=== PATIENT | male | born 1980 | race Hispanic/Latino ===

== ENCOUNTER 2024-05-05 16:36 | Observation (INO) | payer OTHER ==
[~2024-05-05] VITALS: Ht 188 cm; Wt 103.7 kg
[2024-05-05 17:17] LABS: BASOPHILS # (AUTO) 0.09 K/uL (0.00-0.20); EOSINOPHILS # (AUTO) 0.29 K/uL (0.00-0.70); EOSINOPHILS % (AUTO) 3.2 % (0.0-8.0); HEMATOCRIT 43.8 % (42-54); IMMATURE GRANULOCYTE ABSOLUTE 0.05 K/uL (0-1); LYMPHOCYTES # (AUTO) 2.5 K/uL (1.0-4.8); LYMPHOCYTES % (AUTO) 27.2 % (21.0-51.0); MEAN CORPUSCULAR HEMOGLOBIN 30.2 pg (27.0-33.0); MEAN CORPUSCULAR HGB CONC 35.4 g/dL (32.0-36.0); MEAN CORPUSCULAR VOLUME 85.2 fL (79-99); MONOCYTES # (AUTO) 0.6 K/uL (0.1-1.0); MONOCYTES % (AUTO) 6.9 % (3.0-13.0); NEUTROPHILS # (AUTO) 5.6 K/uL (1.8-7.7); NEUTROPHILS % (AUTO) 61.2 % (40.0-77.0); PLATELET COUNT (AUTO) 209 K/uL (130-400); RED BLOOD CELL COUNT(AUTO) 5.14 MIL/uL (4.50-6.20); WHITE BLOOD COUNT (AUTO) 9.2 K/uL (4.8-10.8)
[2024-05-05 17:24] LABS: CARBON DIOXIDE 28 mmol/L (21-32); CHLORIDE 100 mmol/L (101-111); CREATININE 0.8 mg/dL (0.5-1.3); GLOMERULAR FILTR. RATE CALC 111 mL/min (>90); GLUCOSE,RANDOM 298 mg/dL (70-105); SODIUM SERUM 135 mmol/L (136-145); UREA NITROGEN, BLOOD 13 mg/dL (7-18)
[2024-05-05] MEDS: NITROGLYCERIN 1GM OINT 1 INCH/1GM TD ONE (17:27)
[2024-05-05 17:28] LABS: ALANINE AMINOTRANSFERASE 41 U/L (12-78); ALBUMIN 3.5 g/dL (3.5-5.0); ALCOHOL, BLOOD < 3 mg/dL (0-10); ASPARTATE AMINOTRANSFERASE 18 U/L (10-37); BILIRUBIN,DIRECT 0.1 mg/dL (0.0-0.3); BILIRUBIN,TOTAL 0.7 mg/dL (0.2-1.0)
[2024-05-05] MEDS: ASPIRIN 325MG TAB PO ONE (17:28)
[2024-05-05] MEDS ORDERED: NITROGLYCERIN 30 GM TUBE TD ONE (17:30)
[2024-05-05 17:34] LABS: BASOPHILS # (AUTO) 0.08 K/uL (0.00-0.20); BASOPHILS % (AUTO) 0.9 % (0.0-5.0); EOSINOPHILS # (AUTO) 0.27 K/uL (0.00-0.70); EOSINOPHILS % (AUTO) 2.9 % (0.0-8.0); IMMATURE GRANULOCYTE ABSOLUTE 0.04 K/uL (0-1); LYMPHOCYTES # (AUTO) 2.1 K/uL (1.0-4.8); LYMPHOCYTES % (AUTO) 22.5 % (21.0-51.0); MEAN CORPUSCULAR HEMOGLOBIN 30.8 pg (27.0-33.0); MEAN CORPUSCULAR HGB CONC 35.7 g/dL (32.0-36.0); MEAN CORPUSCULAR VOLUME 86.2 fL (79-99); MONOCYTES # (AUTO) 0.7 K/uL (0.1-1.0); MONOCYTES % (AUTO) 7.4 % (3.0-13.0); NEUTROPHILS # (AUTO) 6.1 K/uL (1.8-7.7); NEUTROPHILS % (AUTO) 65.9 % (40.0-77.0); PLATELET COUNT (AUTO) 177 K/uL (130-400); RED BLOOD CELL COUNT(AUTO) 4.87 MIL/uL (4.50-6.20); RED CELL DISTRIBUTION WIDTH 12.1 % (11.0-15.5); WHITE BLOOD COUNT (AUTO) 9.3 K/uL (4.8-10.8)
[2024-05-05 17:37] LABS: B-TYPE NATRIURETIC PEPTIDE < 5 pg/mL (0-100)
[2024-05-05] MEDS: HEPARIN 5,000 UNIT VIAL IV PRN (17:44)
[2024-05-05] MEDS: HEPARIN 25,000 UNITS/250ML D5W 250 ML IV SCH (17:52)
[2024-05-05] MEDS ORDERED: GLUCAGON 1MG KIT 1 MG ML IM PRN (20:00)
[2024-05-05] MEDS ORDERED: LACTULOSE 20 GM/30 ML UDCUP PO PRN (20:00)
[2024-05-05] MEDS ORDERED: DEXTROSE 50%-WATER 50 ML DISP.SYRIN IV PRN (20:00)
[2024-05-05] MEDS ORDERED: GUAIFENESIN-DM 200/20 MG 10 ML PO PRN (20:00)
[2024-05-05] MEDS ORDERED: KCL 20 MEQ ERTAB PO PRN (20:00)
[2024-05-05] MEDS ORDERED: NITROGLYCERIN 0.4 MG SL TAB SL PRN (20:00)
[2024-05-05] MEDS ORDERED: ZOLPIDEM TARTRATE 5 MG TAB PO PRN (20:00)
[2024-05-05] MEDS ORDERED: HYDRALAZINE 20MG/ML VIAL IV PRN (20:00)
[2024-05-05] MEDS ORDERED: DiphenhydrAMINE HCL 50 MG/ML VIAL IV PRN (20:00)
[2024-05-05] MEDS ORDERED: POTASSIUM CHLORIDE 10% ELIXIR 20 MEQ/15 ML UDCUP PO PRN (20:00)
[2024-05-05] MEDS ORDERED: POTASSIUM CHLORIDE 10MEQ/100ML 100 ML IV PRN (20:00)
[2024-05-05] MEDS ORDERED: MAG/ALUM/SIMETH 30 ML UDCUP PO PRN (20:00)
[2024-05-05] MEDS ORDERED: ACETAMINOPHEN 325 MG TAB PO PRN ×2 (20:00)
[2024-05-05] MEDS ORDERED: ONDANSETRON 4MG INJ IV PRN (20:00)
[2024-05-05] MEDS ORDERED: FAMOTIDINE 20MG VIAL IV PRN (20:00)
[2024-05-05] MEDS ORDERED: OXYCODONE/ACETAMIN 5/325MG TAB PO PRN (20:00)
[2024-05-05] MEDS: FAMOTIDINE 20MG VIAL IV SCH (21:09)
[2024-05-05] MEDS: INSULIN HUMULIN R 100 UNIT/ML 3ML SQ SCH (21:17)
[2024-05-05 21:50] VITALS: BP 112/78; PULSE 91; RESP 18; O2SAT 94
[2024-05-05] MEDS: KETOROLAC 15MG/ML VIAL (15MG/ML) IV PRN (21:59)
[2024-05-05] MEDS ORDERED: OMEP40CA21 PO (22:23)
[2024-05-05] MEDS ORDERED: BENZ200C53 PO (22:23)
[2024-05-05] MEDS ORDERED: LISI5TAB21 PO (22:23)
[2024-05-05] MEDS ORDERED: METF-444 PO (22:23)
[2024-05-05] MEDS ORDERED: FENO54TA6 PO (22:23)
[2024-05-05] MEDS ORDERED: ATOR20TA65 PO (22:23)
[2024-05-05] MEDS ORDERED: CETI10TA57 PO (22:23)
[2024-05-05] MEDS ORDERED: ASPI-1197 PO (22:23)
[2024-05-05] MEDS ORDERED: INSU100I24 SQ (22:23)
[2024-05-06] VITALS (7 sets, daily range): BP systolic 101–122; BP diastolic 65–87; PULSE 60–90; RESP 17–20; O2SAT 96
[2024-05-06 00:46] LABS: INR 1.06 (0.85-1.15); PROTHROMBIN TIME 11.4 SEC (9.6-11.6)
[2024-05-06 00:48] LABS: PARTIAL THROMBOPLASTIN TIME 48.8 SEC (26.3-35.5)
[2024-05-06 05:32] LABS: AMPHET/METH SCREEN,URINE NEGATIVE (NEGATIVE); BARBITURATE SCREEN, URINE NEGATIVE (NEGATIVE); BENZODIAZEPINES SCREEN,URINE NEGATIVE (NEGATIVE); CANNABINOID SCREEN,URINE NEGATIVE (NEGATIVE); COCAINE SCREEN,URINE NEGATIVE (NEGATIVE); OPIATE SCREEN,URINE NEGATIVE (NEGATIVE); PHENCYCLIDINE SCREEN,URINE NEGATIVE (NEGATIVE)
[2024-05-06 05:34] LABS: APPEARANCE,URINE CLEAR (CLEAR); BILIRUBIN,URINE NEGATIVE (NEGATIVE); COLOR,URINE YELLOW (YELLOW); GLUCOSE, URINE (UA) >=1000 mg/dL (NEGATIVE); KETONES,URINE NEGATIVE (NEGATIVE); LEUKOCYTE ESTERASE ,URINE NEGATIVE Leu/uL (NEGATIVE); MUCUS,URINE RARE LPF (None Seen); NITRATE,URINE NEGATIVE (NEGATIVE); OCCULT BLOOD,URINE NEGATIVE (NEGATIVE); PH,URINE 5.5 (5.0-8.0); PROTEIN,URINE NEGATIVE (NEGATIVE); SQUAMOUS EPITHELIAL CELL,UR RARE /HPF (0-2); UROBILINOGEN,URINE 0.2 mg/dL (0.2-1.0)
[2024-05-06 06:34] LABS: BASOPHILS # (AUTO) 0.07 K/uL (0.00-0.20); BASOPHILS % (AUTO) 0.7 % (0.0-5.0); EOSINOPHILS % (AUTO) 3.1 % (0.0-8.0); HEMATOCRIT 42.3 % (42-54); IMMATURE GRANULOCYTE ABSOLUTE 0.05 K/uL (0-1); LYMPHOCYTES # (AUTO) 2.5 K/uL (1.0-4.8); LYMPHOCYTES % (AUTO) 25.7 % (21.0-51.0); MEAN CORPUSCULAR HEMOGLOBIN 30.7 pg (27.0-33.0); MEAN CORPUSCULAR HGB CONC 34.5 g/dL (32.0-36.0); MEAN CORPUSCULAR VOLUME 89.1 fL (79-99); MONOCYTES # (AUTO) 0.7 K/uL (0.1-1.0); MONOCYTES % (AUTO) 7.5 % (3.0-13.0); NEUTROPHILS % (AUTO) 62.5 % (40.0-77.0); PLATELET COUNT (AUTO) 192 K/uL (130-400); RED BLOOD CELL COUNT(AUTO) 4.75 MIL/uL (4.50-6.20); RED CELL DISTRIBUTION WIDTH 12.3 % (11.0-15.5); WHITE BLOOD COUNT (AUTO) 9.6 K/uL (4.8-10.8)
[2024-05-06 06:47] LABS: INR 1.1 (0.85-1.15); PROTHROMBIN TIME 11.8 SEC (9.6-11.6)
[2024-05-06 06:48] LABS: PARTIAL THROMBOPLASTIN TIME 55.2 SEC (26.3-35.5)
[2024-05-06 06:54] LABS: ALANINE AMINOTRANSFERASE 28 U/L (12-78); ALBUMIN 2.9 g/dL (3.5-5.0); AMMONIA 22 umol/L (11-32); ASPARTATE AMINOTRANSFERASE 14 U/L (10-37); BILIRUBIN,DIRECT 0.1 mg/dL (0.0-0.3); BILIRUBIN,TOTAL 0.9 mg/dL (0.2-1.0); CARBON DIOXIDE 26 mmol/L (21-32); CHLORIDE 103 mmol/L (101-111); CREATINE KINASE, TOTAL 42 U/L (21-232); CREATININE 0.7 mg/dL (0.5-1.3); GLOMERULAR FILTR. RATE CALC 115 mL/min (>90); GLUCOSE,RANDOM 187 mg/dL (70-105); POTASSIUM 3.9 mmol/L (3.5-5.1); SODIUM SERUM 138 mmol/L (136-145); UREA NITROGEN, BLOOD 12 mg/dL (7-18)
[2024-05-06 07:02] LABS: HEMOGLOBIN A1C 10.7 % (4.0-6.0)
[2024-05-06 07:04] LABS: B-TYPE NATRIURETIC PEPTIDE 10 pg/mL (0-100)
[2024-05-06] MEDS: MAGNESIUM 2GM PREMIX 50ML 50 ML IV PRN (07:23)
[2024-05-06 10:17] LABS: THYROID STIMULATING HORMONE 0.78 uIU/mL (0.36-3.74)
[2024-05-06] MEDS ORDERED: NON-FORMULARY MEDICATION 1 EACH (Benzonatate 200 MG) PO SCH (14:00)
[2024-05-06] MEDS ORDERED: POTASSIUM CHLORIDE 10MEQ SR TAB PO PRN (18:30)
[2024-05-06] MEDS: ATORVASTATIN 20 MG TABLET PO SCH (19:53)
[2024-05-07] VITALS (7 sets, daily range): BP systolic 99–139; BP diastolic 55–82; PULSE 66–93; RESP 17–19; O2SAT 97
[2024-05-07] MEDS: INSULIN GLARGINE 100 UNITS/ML 10 ML VIAL SQ SCH (08:57)
[2024-05-07] MEDS: CETIRIZINE HCL 5 MG TABLET PO SCH (08:57)
[2024-05-07] MEDS: ASPIRIN 81MG CHEW TAB PO SCH (08:57)
[2024-05-07] MEDS: LISINOPRIL 5 MG TABLET PO SCH (08:57)
[2024-05-07] MEDS: EMPAGLIFLOZIN 25MG TABLET PO SCH (08:57)
[2024-05-07] MEDS ORDERED: NON-FORMULARY MEDICATION 1 EACH (Cetirizine HCl 10 MG) PO SCH (09:00)
[2024-05-07] MEDS: REGADENOSON 0.4 MG/5 ML PF SYG IVP SCH (13:07)
[2024-05-07] MEDS ORDERED: ISOSORBIDE MONO 30MG SR TAB PO ONE (14:30)
[2024-05-07] MEDS: ISOSORBIDE MONO 30MG SR TAB PO SCH (15:23)
[2024-05-07] MEDS ORDERED: EMPA25TA PO (16:45)
[2024-05-07] MEDS ORDERED: Isosorbide Mono 30MG Sr Tab PO (16:45)
== END 2024-05-07 17:10 | disposition home or self-care (01) ==
LOC: EDH 16:36 → INTOOBSV 19:42 → EDHIP 19:42 → 4AH 21:33
PROVIDERS: ADMIT Hospitalist; ATTEND Hospitalist
DX: R55 Syncope and collapse (principal); R07.89 Other chest pain; I10 Essential (primary) hypertension; E11.65 Type 2 diabetes mellitus with hyperglycemia; E11.649 Type 2 diabetes mellitus with hypoglycemia without coma; R51.9 Headache, unspecified; E87.1 Hypo-osmolality and hyponatremia; E43 Unspecified severe protein-calorie malnutrition; E78.00 Pure hypercholesterolemia, unspecified; E78.1 Pure hyperglyceridemia; E83.42 Hypomagnesemia; F84.0 Autistic disorder; G47.33 Obstructive sleep apnea (adult) (pediatric); K27.9 Peptic ulcer, site unspecified, unspecified as acute or chronic, without hemorrhage or perforation; Q33.3 Agenesis of lung; I20.0 Unstable angina; K21.9 Gastro-esophageal reflux disease without esophagitis; F17.210 Nicotine dependence, cigarettes, uncomplicated; Z79.84 Long term (current) use of oral hypoglycemic drugs; Z79.899 Other long term (current) drug therapy; Z68.29 Body mass index [BMI] 29.0-29.9, adult; Z98.890 Other specified postprocedural states; W19.XXXA Unspecified fall, initial encounter; Y92.009 Unspecified place in unspecified non-institutional (private) residence as the place of occurrence of the external cause; Y93.89 Activity, other specified; Y99.8 Other external cause status
CPT/HCPCS: 96376 ×3; 96372 ×3; 96365; 96366 ×2; 80076 ×2; 84484 ×2; 80048 ×2; 83880 ×2; 83690; 85025 ×3; 85730 ×3; 82948 ×8; 36415 ×2; 71045; 70450; 93306; 93880; 99291; 96375; 93005 ×4; 96368; 83036; 84443; 82550; 83735; 80061; 80305; 82140; 85610 ×2; 83605; 81001; 84145; 93017; 78452; 96374; J3490 ×4; J1644 ×3; J1885 ×2; J1815 ×5; G0378 ×27; J3475; A4600; J2785; A9500 ×2

== ENCOUNTER 2024-05-12 15:08 | Emergency (ER) | payer OTHER ==
[~2024-05-12] VITALS: Ht 188 cm; Wt 102.1 kg
[~2024-05-12 15:08] MED LIST: ASPI-1197 PO; ATOR20TA65 PO; BENZ200C53 PO; CETI10TA57 PO; EMPA25TA PO; FENO54TA6 PO; INSU100I24 SQ; Isosorbide Mono 30MG Sr Tab PO; LISI5TAB21 PO; METF-444 PO; OMEP40CA21 PO
[2024-05-12 15:58] LABS: BASOPHILS # (AUTO) 0.09 K/uL (0.00-0.20); EOSINOPHILS # (AUTO) 0.29 K/uL (0.00-0.70); EOSINOPHILS % (AUTO) 3.1 % (0.0-8.0); HEMATOCRIT 45.5 % (42-54); IMMATURE GRANULOCYTE ABSOLUTE 0.05 K/uL (0-1); LYMPHOCYTES # (AUTO) 2.7 K/uL (1.0-4.8); LYMPHOCYTES % (AUTO) 29.4 % (21.0-51.0); MEAN CORPUSCULAR HEMOGLOBIN 30.4 pg (27.0-33.0); MEAN CORPUSCULAR HGB CONC 35.4 g/dL (32.0-36.0); MONOCYTES # (AUTO) 0.8 K/uL (0.1-1.0); MONOCYTES % (AUTO) 8.3 % (3.0-13.0); NEUTROPHILS # (AUTO) 5.3 K/uL (1.8-7.7); NEUTROPHILS % (AUTO) 57.7 % (40.0-77.0); PLATELET COUNT (AUTO) 226 K/uL (130-400); RED BLOOD CELL COUNT(AUTO) 5.29 MIL/uL (4.50-6.20); RED CELL DISTRIBUTION WIDTH 11.9 % (11.0-15.5); WHITE BLOOD COUNT (AUTO) 9.3 K/uL (4.8-10.8)
[2024-05-12 16:12] LABS: CREATININE 0.7 mg/dL (0.5-1.3)
[2024-05-12 16:22] LABS: BILIRUBIN,TOTAL 0.8 mg/dL (0.2-1.0); TOTAL PROTEIN, SERUM 7.9 g/dL (6.0-8.3)
[2024-05-12] MEDS: MECLIZINE HCL 25 MG TABLET PO ONE (17:47)
[2024-05-12] MEDS: ACETAMINOPHEN 500 MG TABLET PO ONE (17:48)
[2024-05-12] MEDS ORDERED: MECL-302 PO (18:18)
[2024-05-12 19:00] VITALS: BP 141/86; PULSE 82; RESP 16; O2SAT 97
== END 2024-05-12 19:03 | disposition home or self-care (01) ==
LOC: EDH 15:08
DX: R42 Dizziness and giddiness (principal); J02.9 Acute pharyngitis, unspecified; H92.02 Otalgia, left ear; E11.9 Type 2 diabetes mellitus without complications; E78.00 Pure hypercholesterolemia, unspecified; I10 Essential (primary) hypertension; K21.9 Gastro-esophageal reflux disease without esophagitis; Z79.4 Long term (current) use of insulin; Z79.84 Long term (current) use of oral hypoglycemic drugs; Z79.82 Long term (current) use of aspirin; Z98.890 Other specified postprocedural states; Z79.899 Other long term (current) drug therapy
CPT/HCPCS: 36415; 80053; 84484; 85025; 87880; 93005